=== PATIENT | female | born 1985 | race Hispanic/Latino ===

== ENCOUNTER 2025-06-08 19:32 | Emergency (ER) | payer BC, OTHER ==
[~2025-06-08] VITALS: Ht 160 cm; Wt 77.1 kg
[~2025-06-08 19:32] MED LIST: FIORICET 50-301 EACH PO; ONDANSETRON ODT4 MG SL
[2025-06-08 19:33] VITALS: TEMP 97.7
[2025-06-08 20:00] VITALS: PULSE 77; RESP 16
[2025-06-08 20:07] LABS: BASOPHILS % 0.2 % (0.0-1.0); EOSINOPHILS % 3.2 % (0.0-6.0); LYMPHOCYTES % 26.4 % (18.0-39.1); MONOCYTES % 8.3 % (4.4-11.3); NEUTROPHILS % 61.7 % (38.7-80.0); RED CELL DISTRIBUTION WIDTH 11.9 % (11.7-14.4)
[2025-06-08] MEDS ORDERED: SODIUM CHLORIDE FLUSH 10 ML SYR IV PRN (20:15)
[2025-06-08 20:20] LABS: EST GLOMERULAR FILTRATION RATE 95 ML/MIN (>=60)
[2025-06-08 21:07] VITALS: BP 103/85; PULSE 77; RESP 12; TEMP 97.8; O2SAT 98
== END 2025-06-08 21:10 | disposition home or self-care (01) ==
LOC: ER 20:48
DX: R06.02 Shortness of breath (principal); R07.89 Other chest pain; J45.909 Unspecified asthma, uncomplicated; K21.9 Gastro-esophageal reflux disease without esophagitis; F41.9 Anxiety disorder, unspecified; Z87.19 Personal history of other diseases of the digestive system
CPT/HCPCS: 36415; 71045; 80053; 83880; 84484; 85025; 93005; 94760; 99284